=== PATIENT | female | born 1980 | race Caucasian/White ===

== ENCOUNTER 2018-01-16 05:18 | Day surgery (SDC) | payer BC ==
[2018-01-15 13:44] VITALS: BMI 19.8
[2018-01-16] MEDS ORDERED: CLINDAMYCIN IVPB 300 MG in DEXTROSE 5%-WATER - 50 ML IVPB ONE (07:28)
[2018-01-16] MEDS ORDERED: PHENAZOPYRIDINE HCL 100 MG TABLET (FP) PO ONE (07:31)
[2018-01-16] MEDS ORDERED: ONDANSETRON 4 MG/2 ML VIAL IVPUSH PRN (10:16)
[2018-01-16] MEDS ORDERED: PROMETHAZINE HCL 25 MG/1 ML VIAL IVPB PRN (10:16)
[2018-01-16] MEDS ORDERED: oxyCODONE HCL 5 MG TABLET PO PRN (10:16)
[2018-01-16] MEDS ORDERED: MIDAZOLAM HCL 2 MG/2 ML SINGLE DOSE VIAL ONE ×2 (10:29)
[2018-01-16] MEDS ORDERED: LACTATED RINGERS SOLUTION 1,000 ML IV SCH (10:30)
[2018-01-16] MEDS ORDERED: PROPOFOL 20 ML ONE (10:34)
[2018-01-16] MEDS ORDERED: SUCCINYLCHOLINE CHLORIDE 200 MG/10 ML VIAL ONE (10:35)
[2018-01-16] MEDS ORDERED: ACETAMINOPHEN 325 MG TABLET (FP) PO PRN (11:37)
[2018-01-16] MEDS ORDERED: IBUPROFEN 400 MG TABLET (FP) PO PRN (11:37)
--- NOTE | 2018-01-16 11:37 | HP ---
History & Physical Update - History History: No Change - Physical Physical: No Change - Assessment Assessment: No Change - Plan Plan: No Change (No changed in HP)
--- NOTE | 2018-01-16 11:39 | OP ---
Operative Note - Note: Operative Date: 01/16/18 Pre-Operative Diagnosis: Endometrial polyps Operation: Hysteroscopic myomectomy. Suction DC Findings: endometrial polyps seen Post-Operative Diagnosis: Same as Pre-op Surgeon: Sandy Mayer Anesthesia: General Estimated Blood Loss (mls): 10 Operative Report Dictated: Yes
[2018-01-16 13:50] VITALS: TEMP 97.8
[2018-01-16 17:16] VITALS: BP 92/64; PULSE 60
--- NOTE | 2018-01-17 17:48 | PATH ---
Surgical Pathology Report Patient Name: FELECIA SYLVESTER Med. Rec. #: [id number] /Age/Gender: 1980 (Age: 37) / F Account: [id number] Location: [facility] SURGICAL Taken: 01/16/2018 Received: 01/16/2018 Reported: 01/17/2018 Physicians: Sandy Mayer M.D. Specimen(s) Received UTERINE CONTENTS Clinical History Endometrial polyp Final Diagnosis CONTENTS OF UTERUS, DILATION AND CURETTAGE: FRAGMENTS OF ENDOMETRIAL POLYP. Electronically Signed Laura Harirs M.D. Gross Description Received in formalin labeled "contents of uterus," is a 4.5 x 3.0 x 0.4 cm aggregate of oliver soft tissue fragments. The formalin is filtered and the specimen is entirely submitted in 2 cassettes. /01/16/2018 saudi01/16/2018
--- NOTE | 2018-02-06 12:45 | OP ---
DATE OF OPERATION: 01/16/2018 PREOPERATIVE DIAGNOSIS: Endometrial polyps. OPERATION: 1. Hysteroscopic myomectomy. 2. Fractional dilatation and curettage. POSTOPERATIVE DIAGNOSIS: Endometrial polyps. SURGEON: Sandy Mayer MD ANESTHESIA: General. ESTIMATED BLOOD LOSS: 10 mL. DESCRIPTION OF PROCEDURE: Patient was taken to the operating room, placed in the dorsal lithotomy position, prepped and draped in the usual sterile fashion. A timeout was performed in accordance with hospital regulation. Speculum was placed in the vagina. Anterior lip of the cervix was grasped with a single-toothed tenaculum. Cervix was then dilated to accommodate the operative hysteroscope. The operative hysteroscope was then inserted, and endometrial polyps were seen. Cautery and cutting of the endometrial polyps were then done followed by suction dilatation and curettage. All instruments were then removed. The patient tolerated the procedure well and was taken to recovery room in stable condition. SANDY MAYER M.D. [id number]
== END 2018-01-16 14:00 | disposition home or self-care (01) ==
LOC: JASU-SURG 05:18
PROVIDERS: ATTEND Obstetrics & Gynecology
PROC: 0UB98ZX Excision of Uterus, Via Natural or Artificial Opening Endoscopic, Diagnostic (ICD-10-PCS; principal; 2018-01-16 09:30)
PROC: 0UDB8ZZ Extraction of Endometrium, Via Natural or Artificial Opening Endoscopic (ICD-10-PCS; 2018-01-16 09:30)
DX: N84.0 Polyp of corpus uteri (principal)
CPT/HCPCS: 88305-TC; 94760